=== PATIENT | male | born 1995 | race Asian ===

== ENCOUNTER 2021-12-18 15:15 | Emergency (ER) | payer OTHER ==
[~2021-12-18] VITALS: Ht 182.9 cm; Wt 75.7 kg
[2021-12-18 16:50] VITALS: BP 132/74
== END 2021-12-18 17:53 | disposition home or self-care (01) ==
LOC: ER 15:15
DX: S00.03XA Contusion of scalp, initial encounter (principal); W20.8XXA Other cause of strike by thrown, projected or falling object, initial encounter; Y93.89 Activity, other specified; Y92.89 Other specified places as the place of occurrence of the external cause; Y99.8 Other external cause status
CPT/HCPCS: 70450